=== PATIENT | male | born 1955 | race Caucasian/White ===

== ENCOUNTER 2024-11-04 05:55 | Day surgery (SDC) | payer MEDICARE, SELFPAY ==
[2024-10-22 10:39] VITALS: BMI 30.5
[2024-10-22 11:16] LABS: Hematocrit 42.5 % (39.0-52.0); Hemoglobin 14.1 g/dL (13.0-18.0); Mean Corp Hgb Conc. 33.2 g/dL (33.0-37.0); Mean Corpuscular Volume 89.9 fL (80.0-94.0); Nucleated Red Blood Cells % 0 % (-); Platelet Count 237 10^3/uL (130-400); Red Cell Dist. Width 12.7 % (11.5-14.5)
[2024-10-22 11:41] LABS: ALT (SGPT) 19 U/L (0-50); AST (SGOT) 21 U/L (17-59); Albumin 4.3 g/dl (3.5-5.0); Alkaline Phosphatase 37 U/L (38-126); Blood Urea Nitrogen 19 mg/dl (9-20); Calcium 9.5 mg/dl (8.4-10.2); Carbon Dioxide 25 mmol/L (22-30); Chloride 108 mmol/L (98-107); Estimated Creatinine Clearance 121 ml/min; Glucose 141 mg/dl (70-99); Potassium 4.4 mmol/L (3.5-5.1); Sodium 139 mmol/L (135-145); Total Protein 6.6 g/dl (6.3-8.2); eGFR > 60.00
[2024-11-04] VITALS (15 sets, daily range): BP systolic 108–135; BP diastolic 66–88; BMI 31.4
[2024-11-04 06:57] LABS: Glucose - Point of Care 121 mg/dl (70-99)
[2024-11-04 08:48] LABS: ACT-LR - POC 297 Seconds (116-155)
[2024-11-04 09:02] LABS: ACT-LR - POC 277 Seconds (116-155)
[2024-11-04 09:18] LABS: ACT-LR - POC 390 Seconds (116-155)
[2024-11-04 10:12] LABS: Glucose - Point of Care 125 mg/dl (70-99)
--- NOTE | 2024-11-04 10:18 | ITS.CL.ABL ---
[employer] [facility] [employer] - Ablation
Ablation
Procedure Report:
AFIB ablation:
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
Date of the Procedure:
11/04/2024
Indications:
Paroxysmal atrial fibrillation
Pre-Operative Diagnosis:
Paroxysmal atrial fibrillation
Post-Operative Diagnosis:
Paroxysmal atrial fibrillation
Procedure Performed:
Atrial fibrillation ablation with Pulsed-Field approach for pulmonary vein isolation
Performing Physician:
Blanca Larose MD
Assistants:
EP staff
Anesthesia:
See anesthesia records
Detailed Description of the Procedure:
Written informed consent was obtained from the patient after a full explanation of the risks and benefits of the procedure including the risks of sedation and anesthesia.
The patient was brought to the electrophysiology laboratory in stable condition in fasting state. Continuous electrocardiographic and hemodynamic monitoring was initiated.
The initial rhythm was sinus.
The procedure site was meticulously prepared with surgical scrub and allowed to dry with no pooling. Sterile draping was applied to cover the procedure site. The image intensifier was draped with sterile bag and positioned over the patient. After
infusion of local anesthetic, vascular access was obtained under ultrasound guidance and sheaths were placed over guide wire as detailed below.
Sheath and Catheter Placement:
The following catheters / sheaths were placed
Sheaths:
��������� 17Fr steerable sheath ([employer]adrive�, xAd) in right femoral
��������� 9Fr in right femoral vein
Catheters:
��������� LUIZA HD Grid mapping catheter � at locations of RA, LA
��������� Farawave� PFA catheter
��������� ICE catheter �ViewFlex at locations of RA, SVC, and RV.
Intracardiac ECHO:
An 8-Guinean AcuNav intracardiac ECHO (ICE) probe was advanced through the 9-Guinean sheath in the right femoral vein into the right atrium under fluoroscopic and ICE ultrasound image guidance and a baseline ECHO study was performed. The left atrial
size was normal. There was moderate tricuspid regurgitation. The aortic valve was grossly normal. There was normal left ventricular systolic functions. There is trace pericardial effusion. All the four veins were identified and has flow identified.
There was good flow noted in the JUAN MIGUEL.
During the procedure, ICE was used for monitoring of complications, guidance of trans-septal puncture, monitor the catheter position and tracking ablation lesions. No change in the pericardial space noted throughout the procedure.
Trans-septal Puncture:
Heparin was initiated and infused to maintain appropriate ACT. A pigtail guidewire was advanced through the 8-Guinean sheath in the right femoral vein into the superior vena cava under fluoroscopic and ICE guidance. The 9-Guinean sheath was exchanged
for a Faradrive sheath which was advanced into the superior vena cava. A transseptal RF pigtail via Faradrive connect system was utilized to perform the trans-septal puncture. The apparatus was withdrawn until it was in contact with the fossa
ovalis. The position was adjusted based on fluoroscopy and ultrasound images from ICE. Under fluoroscopic, hemodynamic and ICE ultrasound guidance, left atrium was cannulated by applying RF energy. Once atrial septum was cannulated, the pigtail wire
was advanced through the needle into the left atrium. The guide wire was advanced into the left superior pulmonary vein. Both the sheath and the dilator was advanced into the left atrium. The dilator with the needle was withdrawn. Blood was
aspirated from the Faradrive sheath and arterial blood confirmed. The sheath was flushed. Saline injection noted into the left atrium on ICE. The mapping catheter was advanced in the sheath into the left pulmonary vein. Left atrial pressure was
measured.
3D Electroanatomic Mapping:
Using the HD Grid catheter advanced through sheath into the left atrium, an electroanatomic map (EAM) of the left atrium was created using [employer] LUIZA mapping system. The map was used for localization of catheter position and tacking of ablation
lesions.
The EAM of the left atrium showed 4 pulmonary veins with all 4 veins electrically connected to the body the LA. It showed normal voltage on the posterior and anterior wall of the LA. The LA was mildly dilated in size.
Following the EAM, preparation were made for ablation.
Ablation:
Ablation # 1: Pulmonary vein Isolation:
Glycopyrrolate 0.2 mg was given prior to the placement of ablation.
Glycopyrrolate was not given due to the presence of dual chamber pacemaker.
Using [employer] pulsed wave ablation system, pulmonary vein isolation was achieved. First the ablation catheter was placed in the LSPV and ostial ablation lesions were performed in a counter clock calderon approach all around the PV ostium
circumferentially using the Farapulse catheter in �[place]� formation. Then the catheter was placed on the antral location (in Disc/flower formation) and multiple ablation lesions were placed circumferentially on the antrum of the vein.
In the similar fashion, the LIPV were isolated.
Then the catheter was moved to right sided veins. The ostial and antral ablations were placed as noted above.
EPS and Confirmation of the PVI and bidirectional block:
Following achievement of entrance block at the pulmonary veins, pacing from the HD catheter in each of the four veins at 10 milliamps for 2 milliseconds showed entrance and exit block. All PVI were rechecked at the end of the case and remained
isolated. Entrance and exit block were demonstrated in all veins.
Post ablation Electroanatomic mapping:
Once ablation was completed, the EAM of the LA was done again in sinus rhythm with excellent demarcation of LA myocardium and isolated antral tissue. There was no significant scarring noted in the LA.
The JUAN MIGUEL had healthy signals and was not isolated.
Procedure End
ICE study was done again that showed no epicardial accumulation. No complications noted.
Following the completion of the EP study, catheters were removed. Protamine 40 mg was given at the end of the procedure and ACT was checked repeatedly. The sheaths were removed and hemostasis achieved with �Figure of 8� and manual compression after
acceptable ACT is achieved.
Left atrial Pressure:
Pre-ablation: Mean LA pressure was 14mmHg
Post-ablation: Mean LA pressure was 14mmHg
Post-ablation: Mean RA pressure was 10mmHg
Estimated Blood loss:
<10 cc
Specimens Removed:
None.
Implants / Devices:
None
Urine output:
None
Packs / Drains/ Tubes:
None
Instrument / Sponge Count Correct:
Yes
Complications of the Procedure:
None
Condition of Patient at Time of Transfer:
Hemodynamically stable with no neurological or vascular compromise.
Summary:
Successful atrial fibrillation ablation with Pulsed Field approach for pulmonary vein isolation.
Figures from the Procedure:
Figure 1: The electroanatomic mapping (EAM) of the left atrium with bipolar voltage (purple indicates normal electrical activity with salvador as no myocardial muscle electric activity indicating a line of block or scar.
--- NOTE | 2024-11-04 13:59 | W.PN.UPDATE ---
Update Note
Progress Note Update
69 yo WM s/p PVI (Same day). He denies cp, sob, sally diet, voiding, EKG SR, b/l groins c/d/i no HT, soft. He will resume Eliquis tonight and continue metoprolol. Activity restrictions reviewed. He will f/u [facility] in 2 weeks. He is for d/c home after 230p
if groins stable.
== END 2024-11-04 14:24 | disposition home or self-care (01) ==
LOC: CATH 05:55
PROVIDERS: ATTENDING PHYSICIAN Internal Medicine Cardiovascular Disease; FAMILY PHYSICIAN Internal Medicine; OTHER PHYSICIAN Internal Medicine Cardiovascular Disease
DX: I48.0 Paroxysmal atrial fibrillation (principal); E11.9 Type 2 diabetes mellitus without complications; G47.33 Obstructive sleep apnea (adult) (pediatric); Z79.01 Long term (current) use of anticoagulants; Z79.899 Other long term (current) drug therapy
CPT/HCPCS: C1732; C1730; C1892; 36415; 80053; 82962; 85025; 85347; 86850; 86900; 86901; 93005; 93656; C1733

== ENCOUNTER 2025-02-24 22:09 | Inpatient (IN) | payer MEDICARE, SELFPAY ==
[2025-02-24] VITALS (8 sets, daily range): BP systolic 109–139; BP diastolic 70–99; BMI 32.4
--- NOTE | 2025-02-24 18:28 | ED.GENMED ---
History of Present Illness
General
Chief Complaint: Heart Rate Problem
Time Seen by Provider: 02/24/25 18:21
History of Present Illness
History of Present Illness:
Patient presents to the emergency department palpitations and tachycardia. He has a history of atrial fibrillation status post ablation in October. He is still maintained on Eliquis. Notes that since then he has had episodes of intermittent
tachycardia. States this episode has been ongoing since yesterday. He feels some chest tightness and that his heart is racing. Denies lower extremity swelling. Notes that over the past day or 2 he has been sick with an upper respiratory
infection.
Past History
Past History
ED Past Medical History: Hypercholesterolemia and Other (Sleep apnea, prediabetes, subarachnoid hemorrhage 2003); Negative HTN or NIDDM
Social History
Tobacco: Non-smoker
Phy Exam
Physical Exam
Physical Exam:
GENERAL APPEARANCE: NAD, well developed/ well nourished
EYES lids/conjunctiva normal
EARS/NOSE/THROAT Mucous membranes moist, uvula midline without oral pharyngeal erythema, exudate or swelling
HEAD/NECK normocephalic atraumatic, neck is supple.
RESPIRATORY respiratory effort normal, speaks in full sentences, no accessory muscle use. Lungs clear to auscultation without rhonchi, wheezes, rales
CARDIAC tachycardia, regular
ABDOMINAL Soft, ND/NT.
MUSCLES/EXTREMITIES No abnormal range of motion, no swelling.
SKIN Warm, pink and dry. No rashes
NEUROLOGICAL Speech is clear and appropriate. Normal level of consciousness. 5/5 strength in all extremities.
PSYCH Normal mood and affect. Judgement/competence is appropriate
Course
Orders/Labs/Results
Orders:
Orders
02/24/25 18:03
EKG [Electrocardiogram (*1)] Urgent
Reason for Study: Tachycardia
EKG- Treatment ONCE
02/24/25 18:25
0.9% Sodium Chloride 1000 ml [Nss] 1,000 ml IV BOLUS
Diltiazem 125 mg/125 ml Nss [Cardizem] 125 mg in 125 ml IV NOW
Initial dose in mg/hr, then titrate:: 5
Titrate to keep:: Heart rate 80-100 bpm
Titrate by mg/hr:: 5 mg/hr
Frequency of titrations (minutes):: 15
Maximum dose in mg/hr:: 15
Diltiazem HCl [Cardizem] 15 mg IV NOW STA
02/24/25 18:28
CR Chest - 2 Views Urgent
Comment:
Reason For Exam: cp
02/24/25 18:29
Complete Blood Count/With Diff Urgent
PT/INR [Prothrombin Time] Urgent
Is patient on Coumadin/Warfarin?: No
Comment: [email or web address]
PTT Urgent
02/24/25 18:44
COVID-19 Antigen Urgent
Source: Nasal Swab
Influenza A+B Rapid Molecular Urgent
RODOLFO Source: Nasal Swab
Specimen Description:
02/24/25 18:53
EKG [Electrocardiogram (*1)] Urgent
Reason for Study: Tachycardia
EKG- Treatment ONCE
02/24/25 19:30
Comprehensive Metabolic Panel Urgent
Troponin I Urgent
02/24/25 21:29
Admit/Transfer Patient As Directed
Co-Sign Provider:
Level of Care: Inpatient admission
Assign to:: IVU
Physician / Group: Fred
Diagnosis: Rapid afib, flutter. Influenza A infection
Reason for Hospitalization: Rapid afib, flutter.
Expected length of stay greater than two midnights?: Yes
ELOS- Estimated Length of Stay in days: 2
I certify the patient meets the requirements for IP care: Yes
PRN Pain Medication Management As Directed
May give lesser potent ordered pain med per pt: Yes
preference::
Protocol:: Medication orders for pain may be administered in a
manner that supports deferring to patient preference
when the pt is:
- Requesting an ordered lesser potent pain medication.
Least to most potent pain medications are defined
as: acetaminophen < NSAID < tramadol < opioids
(morphine, oxycodone, hydromorphone).
- Requesting a lesser dose of the same medication IF
ORDERED.
- Requesting a less intrusive route of administration
if both routes are prescribed by the provider (PO <
IV).
02/24/25 21:30
Code Status As Directed
Resuscitation Status: Full Code
02/24/25 21:36
Oseltamivir Phosphate [Tamiflu] 75 mg PO NOW STA
02/24/25 21:37
Metoprolol Xl [Toprol Xl] 50 mg PO NOW STA
Abnormal Lab Results
02/24/25 02/24/25
18:29 19:30
Absolute Monos (auto) 0.7 H 10^3/uL
(0.1-0.6)
Lymphocytes % 17.4 L %
(20.5-51.1)
Monocytes % 10.0 H %
(1.7-9.3)
PT 16.1 H Sec
(11.4-14.6)
Sodium 130 L mmol/L
(135-145)
Carbon Dioxide 21 L mmol/L
(22-30)
BUN 24 H mg/dl
(9-20)
Glucose 119 H mg/dl
(70-99)
02/24/25 18:29
02/24/25 19:30
Vital Signs
Initial and Last Documented VS:
Initial Vital Signs
Temp Pulse Resp BP
98 F 155 16 139/99
02/24/25 18:08 02/24/25 18:08 02/24/25 18:08 02/24/25 18:08
Last Documented Vital Signs
Temp Pulse Resp BP Pulse Ox
98 F 115 16 115/76 93
02/24/25 18:08 02/24/25 22:13 02/24/25 21:30 02/24/25 22:13 02/24/25 21:30
*Pulse Oximetry
Oxygen Mode of Delivery: Room air
Patient hypoxic: no
*Critical Care Note
Total Time (30-74mins, 75-104mins- exclusive of procedures): Not Applicable
ED Attending Note
ED Attending Note
ED Attending Note:
presents with general weakness, URI symtpoms, chest tightness
found to be in atrial flutter 2:1 conduction, HR 150
BP stable
workup notable for hyponatremia and Influenza A
giving IVF, on diltiazem drip HR has improved to around 100
-
Portions of this chart may have been created with voice recognition software.� Occasional wrong word or��sound alike� substitutions may have occurred due to the inherent limitations of voice recognition software.
Discharge Plan
Departure
Patient Disposition: Admit
Date of Disposition: 02/24/25
Time of Disposition: 21:00
Presentation/result/management discussed w/ accepting MD/DO: Hospitalist
Discharge Problem:
Atrial flutter, Hyponatremia, Influenza A
Interventions
Interventions:
*Risk Screen - Suicide Last Done: 02/24/25 18:09
*General Assessment Last Done: 02/24/25 20:43
*Neglect/Abuse Screening Last Done: 02/24/25 18:09
*ED COVID-19 Vaccine History Last Done: 02/24/25 20:43
*ED Influenza Vaccine History Last Done: 02/24/25 20:43
ED- Cardiac Assessment Last Done: 02/24/25 19:30
ED- Pulmonary Assessment Last Done: 02/24/25 20:46
[2025-02-24 18:36] LABS: Hematocrit 46.7 % (39.0-52.0); Hemoglobin 15.9 g/dL (13.0-18.0); Mean Corp Hgb Conc. 34.0 g/dL (33.0-37.0); Mean Corpuscular Volume 86.3 fL (80.0-94.0); Nucleated Red Blood Cells % 0 % (-); Platelet Count 226 10^3/uL (130-400); Red Cell Dist. Width 12.6 % (11.5-14.5)
[2025-02-24] MEDS: CARDIZEM 125 IV (18:38)
[2025-02-24] MEDS: CARDIZEM 15 MG IV (18:38)
[2025-02-24] MEDS: NSS 1000 IV (18:39)
[2025-02-24 18:55] LABS: INR 1.32; PT 16.1 Sec (11.4-14.6)
[2025-02-24 18:56] LABS: APTT 33.6 Sec (23.4-35.0)
[2025-02-24 19:09] LABS: COVID-19 Antigen Negative (Negative)
[2025-02-24 19:54] LABS: ALT (SGPT) 28 U/L (0-50); AST (SGOT) 28 U/L (17-59); Albumin 4.0 g/dl (3.5-5.0); Alkaline Phosphatase 46 U/L (38-126); Blood Urea Nitrogen 24 mg/dl (9-20); Calcium 8.6 mg/dl (8.4-10.2); Carbon Dioxide 21 mmol/L (22-30); Chloride 103 mmol/L (98-107); Glucose 119 mg/dl (70-99); Potassium 4.1 mmol/L (3.5-5.1); Sodium 130 mmol/L (135-145); Total Protein 6.7 g/dl (6.3-8.2); eGFR > 60.00
[2025-02-24 20:01] LABS: Troponin I < 0.012 ng/ml
--- NOTE | 2025-02-24 21:03 | HPS.HSE ---
Family Physician
-
Family Physician: Rene Peter
Chief Complaint
-
Palpitation
History of Present Illness
This is a 70-year-old male with past medical history significant for atrial fibrillation on anticoagulation, status post recent ablation on 29 October, borderline diabetes not on insulin, hyperlipidemia, comes to the emergency department with
palpitations and tachycardia.
Patient reports that he had an ablation in October and has not had intermittent episodes of tachycardia that is not persistent. Patient reported that he has had an episode that has been ongoing since yesterday. He reports some chest tightness and
racing heart. He states he developed upper respiratory symptoms with his spouse about 4 days ago. He reports some mild sinus congestion and cough but noticed significant shortness of breath or dyspnea on exertion. He has no fevers or chills. He
denies any GI losses. He does report slightly decreased appetite. He has no lower extremity swelling. He reports mostly fatigue associated with the upper respiratory symptoms.
In the emergency department he was afebrile, blood pressure was 140/90 with a pulse rate in the 130s, oxygen saturation was 98% on room air. ECG shows atrial flutter with a 2-1 conduction at a rate of 150, repeat ECG after IV diltiazem was down to
80s still atrial flutter with 4-1 conduction. Troponin was negative. Influenza A was positive. Chest x-ray shows no acute cardiopulmonary process. CBC was completely unremarkable stop electrolytes notable for a sodium of 130 but otherwise
unremarkable with normal BUN and creatinine.
Medical History
Past Medical History
Past Medical History: Reports Arrhythmia (Atrial fibrillation, status post cardioversion, status post recent pulmonary vein isolation (ablation)), Cancer (Basal cell cancer status post total resection), Hypercholesterolemia and NIDDM
Past Surgical History: Reports Other
Social History
Tobacco: Non-smoker
Alcohol: None
Drug: None
Living: With Family
Family History
Family History: Not pertinent
Allergies / Home Medications
Allergies reflects when Allergies were last updated in [employer].
Home Medications with original date entered in [employer]
Allergy/Medication List:
Allergies
Allergy/AdvReac Type Severity Reaction Status Date / Time
No Known Allergies Allergy Verified 11/04/24 06:18
Home Medications
apixaban 5 mg tablet (Eliquis) 5 mg PO BID #60 tabs 04/17/22
metformin 1,000 mg tablet 1,000 mg PO BID 04/17/22
multivitamin 1 tab PO DAILY 04/17/22
rosuvastatin 40 mg tablet 40 mg PO DAILY 04/17/22
coQ10 (ubiquinol) 100 mg capsule 100 mg PO DAILY 11/04/24
glipizide 5 mg tablet 5 mg PO DAILY 11/04/24
metoprolol succinate 100 mg tablet,extended release 24 hr 100 mg PO DAILY 11/04/24
omega 1-ral-jii-fish oil 1,000 mg (120 mg-180 mg) capsule (Fish Oil) 1 cap PO DAILY 11/04/24
propranolol 20 mg tablet 20 mg PO QIDPRN PRN afib breakthrough 11/04/24
Review of Systems
-
Constitutional: Reports No Symptoms
EENT: Reports Runny Nose
Respiratory: Reports No Symptoms
Cardiac: Reports No Symptoms and Palpitations (persistent tachycardia)
Abdomen/GI: Reports No Symptoms
: Reports No Symptoms
Musculoskeletal: Reports No Symptoms
Skin: Reports No Symptoms
Neurological: Reports No Symptoms
Endocrine: Reports No Symptoms
Hematologic/Lymphatic: Reports No Symptoms
Psych: Reports No Symptoms
Physical Exam
Vital Signs
Vital Signs
Temp Pulse Resp BP
98 F 121 16 139/99
02/24/25 18:08 02/24/25 20:40 02/24/25 18:08 02/24/25 18:08
Physical Exam
General: Well Developed, Well Nourished and No Apparent Distress
HEENT: NormoCephalic, Moist mucous membranes and Atraumatic
Respiratory: Clear
Cardiac: S1/S2, Irregular Rhythm and Tachycardia; No Murmur, Rub or Peripheral Edema
GI: Soft, Non Tender, Non Distended and Normal Bowel Sounds; No Organomegaly
Rectal: Deferred by Provider
Musculoskeletal: No Clubbing, No Cyanosis and No Edema
Skin: No Rash
Neuro: AO x 3 and Nonfocal/grossly intact
Laboratory Results
-
02/24/25 18:29
02/24/25 19:30
Laboratory Results
PT 16.1 Sec (11.4-14.6) H 02/24/25 18:
INR 1.32 02/24/25 18:
APTT 33.6 Sec (23.4-35.0) 02/24/25 18:29
Total Bilirubin 0.9 mg/dl (0.2-1.3) 02/24/25 19:30
AST 28 U/L (17-59) 02/24/25 19:30
ALT 28 U/L (0-50) 02/24/25 19:30
Alkaline Phosphatase 46 U/L (38-126) 02/24/25 19:30
Troponin I < 0.012 ng/ml 02/24/25 19:30
Data Reviewed
-
Diagnostic Radiology: Image Personally Visualized and interpreted and Report Reviewed by me
Medical Tests (Nuc Med, Echo, EKG etc): Image Personally Visualized and interpreted
Lab Data: Labs Reviewed by me
Old Records: Reviewed
Impression/Plan
-
IMPRESSION:
70-year-old with past medical history significant for vwg-zjnmhkj-evozivymv diabetes, atrial fibrillation on anticoagulation, hyperlipidemia who presents to the emergency department with persistent tachycardia and sensation of palpitations without
dizziness or lightheadedness and remains hemodynamically stable found to be in atrial flutter with initial 2-1 conduction then a 4 1 conduction after diltiazem drip. Patient reports 4 days of upper respiratory symptoms and fatigue and is found to
be influenza A positive.
PLAN:
Rapid atrial fibrillation -history of atrial fibrillation status post recent ablation, preserved EF with on anticoagulation with Eliquis presents with persistent atrial flutter at a rate of 150s over the last 24 to 36 hours. He has mild chest
tightness but denies chest pain and currently denies any chest tightness. Troponin is negative. ECG shows atrial flutter 2-1 conduction at 150 then reduction to one-to-one conduction after diltiazem started and now atrial fibrillation in the
120s. Possibly induced in setting of influenza.
-Admit to IVU inpatient given active flu and uncontrolled rapid afib
-continue diltiazem gtt for now
- continue metoprolol succinate 100 am , 50 hs
- will give additional propranolol once this evening as per patient protocol
- echo in am
- treat flu
- unlikely will need cardioversion, he has been compliant with eliquis with InR 1.3 so can undergo cardioversion if needed without MARTITA
- cardiology consultation
Influenza A infection - Flu A +, multiple risk factors with age, diabetes and uncontrolled afib
- tamfilu 75 bid for now
- supportive measures
- iv fluids
Hyponatremia - Mild dehydration suspected
- will give NS overnight
DM II
- hold metformin
- continue glipizide
- continue jardiance
- sliding scale insulin
DVT PPX - on apixaban
Code status - Full code
[2025-02-24] MEDS: TOPROL XL 50 MG PO (22:13)
[2025-02-24] MEDS: TAMIFLU 75 MG PO (22:13)
[2025-02-25] VITALS (26 sets, daily range): BP systolic 94–118; BP diastolic 59–83; BMI 29.8; BMI 29.5
[2025-02-25 00:30] LABS: Glucose - Point of Care 214 mg/dl (70-99)
[2025-02-25] MEDS: NSS 1000 IV (00:47)
--- NOTE | 2025-02-25 01:22 | PTCARENOTE ---
Pt. rec'd into room 2241 from ED AAOx3, VSS, A-flutter rate 90's on the monitor, Cardizem gtt running at 15 mg/hr. No complaints of chest pain discomfort, states he feels much better since HR came down with meds. B/L expiratory wheeze present on
auscultation, RA pulse ox 96%, denies SOB. Ambulates with steady gait, assist x 1 (help with IV pole only). Admission completed and plan of care discussed with pt., understanding verbalized. Isolation precautions maintained for positive flu A.
Pt. resting quietly.
[2025-02-25] MEDS: CARDIZEM 125 IV (05:04)
[2025-02-25 05:12] LABS: Hematocrit 42.2 % (39.0-52.0); Hemoglobin 14.4 g/dL (13.0-18.0); Mean Corp Hgb Conc. 34.1 g/dL (33.0-37.0); Mean Corpuscular Volume 89.0 fL (80.0-94.0); Platelet Count 189 10^3/uL (130-400); Red Cell Dist. Width 12.8 % (11.5-14.5)
[2025-02-25 05:38] LABS: Blood Urea Nitrogen 24 mg/dl (9-20); Calcium 8.3 mg/dl (8.4-10.2); Carbon Dioxide 23 mmol/L (22-30); Chloride 102 mmol/L (98-107); Estimated Creatinine Clearance 93 ml/min; Glucose 113 mg/dl (70-99); Magnesium 2.1 mg/dl (1.6-2.3); Potassium 4.1 mmol/L (3.5-5.1); Sodium 133 mmol/L (135-145); eGFR > 60.00
--- NOTE | 2025-02-25 08:07 | W.PN.HOSP.TC ---
Today's Communication/Plan
-
See plan
Assessment / Plan
Assessment / Plan
Physical Exam
General: Well Developed, Well Nourished and No Apparent Distress
HEENT: Normocephalic, Moist mucous membranes and Atraumatic
Respiratory: Clear
Cardiac: S1/S2, Irregular Rhythm
GI: Soft, Non Tender, Non Distended and Normal Bowel Sounds
Musculoskeletal: No Cyanosis and No Edema
Skin: Warm. Dry.
Neuro: AAO x 3 and Nonfocal/grossly intact
Assessment/Plan
Rapid Atrial Flutter
- Rate control (not rhythm control due to active Influenza infection): transitioned from Diltiazem Drip to PO Diltiazem, continue metoprolol succinate 100 am , 50 hs
- echo in am
- treat flu
- Continue Eliquis
- cardiology consultation
- Continue to monitor in IVU
- Rhythm check in 10 to 14 days -- if still in the rhythm, would offer cardioversion at that time; could also consider ablation
Influenza A infection - Flu A +, multiple risk factors with age, diabetes and uncontrolled afib
- tamfilu 75 bid for now
- supportive measures
- iv fluids
Hyponatremia - Suspected Hypovolemic
- Received IV fluids and afterwards improved
DM II
- hold metformin
- He does not take Glipizide at home
- continue jardiance
- sliding scale insulin
DVT PPX - on apixaban
Code status - Full code
Anticipated Discharge: Within 24 hours
Subjective/Interval History
-
Date of Service: February 25, 2025
Patient was seen and examined. He reported feeling better, was sitting in chair comfortably, doing okay.
Objective Data
-
Labs:
Laboratory Results
02/25/25
04:58
WBC 5.6
Hgb 14.4
Hct 42.2
Plt Count 189
Sodium 133 L
Potassium 4.1
Chloride 102
Carbon Dioxide 23
BUN 24 H
Creatinine 0.8
Glucose 113 H
Calcium 8.3 L
Vital Signs:
Vital Signs
Temp Pulse Resp BP Pulse Ox
98.5 F 86 20 117/67 96
02/25/25 06:39 02/25/25 05:00 02/25/25 06:39 02/25/25 05:00 02/25/25 06:39
I&O
02/24/25 02/25/25 02/26/25
06:59 06:59 06:59
Intake Total 980 / 980
Balance 980 / 980
[2025-02-25 08:16] LABS: Glucose - Point of Care 99 mg/dl (70-99)
[2025-02-25] MEDS: ELIQUIS 5 MG PO ×2 (08:18→20:10)
[2025-02-25] MEDS: TOPROL XL 100 MG PO (08:18)
[2025-02-25] MEDS: CRESTOR 40 MG PO (08:18)
[2025-02-25] MEDS: TAMIFLU 75 MG PO ×2 (08:55→20:11)
--- NOTE | 2025-02-25 08:58 | CM ---
Reviewed chart. Met with Mr. Irvin to review discharge plans. He states he is feeling better. He states prior to admission he resides with his spouse in a two story home with one step to enter. He state he has a full flight of steps to full
bathroom. He states he has a powder room on the first floor. He states he sleeps on the first floor. He states prior to admission he was independent with ambulation and adls. He states he has a CPAP Machine at home and no other DME. He states he
has a prescription plan and uses [facility]. Medical work-up in progress. The discharge plan is to return home with his spouse when medically stable.
--- NOTE | 2025-02-25 10:21 | CON.CAR ---
Addendum entered and electronically signed by Nathalie Duvall MD 02/25/25 12:50:
I saw and evaluated the patient, and I provided the substantive portion of the medical decision making.
I reviewed and agree with the note by BOBY Chapman and it accurately reflects our care.
I personally performed the medical decision making of the this encounter and my assessment and plan is below:
70-year-old gentleman with a past medical history of PAF status post PVI 10/2021 on Eliquis, diabetes, hypertension and obesity who presented for evaluation of palpitation and tachycardia into the 150s for the several days. He was noted to be
positive for flu. He is feeling better since rate is now under control.
On exam, he has an irregularly irregular rate and rhythm with a normal S1-S2 no murmur rubs gallops were appreciated lungs were clear to auscultation bilaterally abdomen was soft, extremities are warm over Fuzeon clubbing cyanosis or edema.
EKG on arrival showed atrial flutter with 2-1 conduction at 153 bpm today this is atrial flutter with rate control at 85 bpm.
Assessment:
Atrial flutter unspecified duration
PAF status post PVI
Influenza A
Diabetes
Hypertension
Plan:
Will not attempt rhythm control given active flu infection. Instead, we are achieving rate control with the addition of diltiazem drip. Will transition this to p.o. Will continue some beta-brigette. Would recommend a rhythm check in 10 to 14
days. If still in the rhythm would offer cardioversion at that time. Could also consider ablation continue Eliquis without interruption.
He asked about going to a haircut tomorrow, I recommended he isolate for the next 7 days given the flu.
Continue Jardiance and metformin.
Anticipate discharge tomorrow and rate control atrial flutter.
Original Note:
Consultation
Consultation Request
Date/Time Consultation Requested: 02/25/25 6:15a
Date/Time Consultation Performed: 02/25/25 9:30a
Requesting Provider: Dr. Ibarra
Performing Provider: BOBY Chapman for Dr. Duvall
Reason for Consultation: Aflutter
Medical History
-
Chief Complaint: palpitations
History of Present Illness:
Mr. Irvin is a 70 yo male with paroxysmal Afib s/p PVI 10/2024, on Eliquis, DM, HTN, and obesity, who presents to the ER with c/o palpitations with elevated heart rates of 150s for the last couple days. He states yesterday his heart rate was 150 all
day. He is s/p PVI 10/2024 and has had some palpitations on Toprol 100mg daily so he notified cardiology and Dr. Edmonds added Toprol 50mg at bedtime in addition to 100mg in am. He feels palps were a little better since then, but yesterday not. He
is flu positive and admitted to the hospitalist service. EKG with new Aflutter. On Diltiazem gtt his rates have improved and he denies any cardiac symptoms. He reports compliance with Eliquis, no abnormal bleeding.
Past Medical History
Past Medical History: Other (as above)
Past Surgical History: Cardiac (PVI 10/2024)
Social History
Tobacco: Non-Smoker
Personal:
Living: With Family
Family History
Family History: Reviewed & Not Pertinent
Allergies / Home Medications
Allergy/AdvReac Type Severity Reaction Status Date / Time
No Known Allergies Allergy Verified 11/04/24 06:18
�Medication �Instructions �Recorded �Confirmed �Type
metformin 1,000 mg tablet 1,000 mg PO BID Diabetes 04/17/22 02/24/25 History
multivitamin 1 tab PO DAILY Supplement 04/17/22 02/24/25 History
rosuvastatin 40 mg tablet 40 mg PO DAILY High Cholesterol 04/17/22 02/24/25 History
coQ10 (ubiquinol) 100 mg capsule 100 mg PO DAILY Supplement 11/04/24 02/24/25 History
metoprolol succinate 100 mg 100 mg PO DAILY Heart 11/04/24 02/24/25 History
tablet,extended release 24 hr Disease/Condition
omega 4-yic-yny-fish oil 1,000 mg 1 cap PO DAILY Supplement 11/04/24 02/24/25 History
(120 mg-180 mg) capsule (Fish Oil)
propranolol 20 mg tablet 20 mg PO QIDPRN PRN afib 11/04/24 02/24/25 History
breakthrough
empagliflozin 10 mg tablet 10 mg PO DAILY Diabetes 02/24/25 02/24/25 History
(Jardiance)
apixaban 5 mg tablet 5 mg PO BID Blood Clot 02/25/25 02/25/25 History
Prevention/Tx
Review of Systems
-
History Source: Patient
All other systems: Negative unless noted
Physical Exam
Vital Signs
Temp Pulse Resp BP Pulse Ox
98.5 F 81 20 100/63 96
02/25/25 06:39 02/25/25 09:30 02/25/25 06:39 02/25/25 08:27 02/25/25 06:39
Lab Results
02/25/25 04:58
02/25/25 04:58
Troponin I < 0.012 ng/ml 02/24/25 19:30
Yqc-X-Lxcwthrlyoa Pept 361 pg/ml 02/25/25 04:58
Physical Exam
General: Well Developed and No Apparent Distress
HEENT: Normocephalic and Anicteric
Respiratory: Clear and Non Labored Respirations
Cardiac: S1/S2 and Irregular Rhythm
Breast: Deferred by me
GI: Soft, Non Tender, Non Distended and Normal Bowel Sounds
Rectal: Deferred by Provider
Genito-urinary: Clear Urine
Musculoskeletal: No Clubbing, No Cyanosis and No Edema
Skin: Warm and Dry
Neuro: AO x 3
Hematologic/Lymphatic: No Lymphadenopathy
Psych: Calm
Impression / Plan
-
Aflutter - new with rapid rates.
- rates improved with IV Diltiazem.
- switch IV Dilt to PO, 60mg QID while inpatient.
- monitor on tele.
- continue Toprol 100mg daily.
- OAC with Eliquis 5mg BID, [id number] VASc score 3.
- plan for outpatient follow up in 2-3 weeks and can schedule cardioversion at that time, once he recovers from the flu.
Afib - paroxysmal.
- s/p PVI 10/2024.
- continue Toprol, Eliquis and Diltiazem.
HLD - stable on meds.
DM - per hospitalist.
Influenza A - acute.
- per hospitalists.
Data Reviewed
-
EKG: Tracing Personally Visualized and interpreted (Aflutter 87 bpm)
Radiology: Report Reviewed by me (CXR NAD)
Labs: Labs Reviewed by me
Old Records: Reviewed
[2025-02-25 10:43] LABS: Glycohemoglobin (HgbA1c) 6.7 % (4.0-5.9)
[2025-02-25 11:43] LABS: Glucose - Point of Care 110 mg/dl (70-99)
[2025-02-25] MEDS: CARDIZEM 60 MG PO ×2 (11:58→17:38)
[2025-02-25 16:51] LABS: Glucose - Point of Care 96 mg/dl (70-99)
[2025-02-25] MEDS: FARXIGA 10 MG PO (17:38)
[2025-02-25 21:30] LABS: Glucose - Point of Care 137 mg/dl (70-99)
[2025-02-25] MEDS: CARDIZEM PO (21:46)
[2025-02-25] MEDS: TOPROL XL 50 MG PO (21:48)
[2025-02-26] MEDS: CARDIZEM 60 MG PO ×2 (00:13→08:51)
--- NOTE | 2025-02-26 00:50 | PTCARENOTE ---
Pt. remains in A-flutter so far this shift, rate mostly 70's-low 100's with occasional ~2 second pauses. States he feels much better overall, flu symptoms improving. Currently watching TV.
[2025-02-26 03:47] VITALS: BP 105/64
[2025-02-26 04:01] VITALS: BMI 29.4
[2025-02-26 04:23] LABS: Blood Urea Nitrogen 27 mg/dl (9-20); Calcium 8.3 mg/dl (8.4-10.2); Carbon Dioxide 24 mmol/L (22-30); Chloride 105 mmol/L (98-107); Estimated Creatinine Clearance 124 ml/min; Glucose 111 mg/dl (70-99); Potassium 3.9 mmol/L (3.5-5.1); Sodium 134 mmol/L (135-145); eGFR > 60.00
[2025-02-26 07:12] VITALS: BP 101/78
[2025-02-26 07:16] LABS: Glucose - Point of Care 114 mg/dl (70-99)
--- NOTE | 2025-02-26 07:43 | W.PN.HOSP.TC ---
Today's Communication/Plan
-
Discharge today
Assessment / Plan
Assessment / Plan
Physical Exam
General: Well Developed, Well Nourished and No Apparent Distress
HEENT: Normocephalic, Moist mucous membranes
Respiratory: Clear to Auscultation Bilaterally
Cardiac: S1/S2, RRR
GI: Soft, Non Tender, Non Distended and Normal Bowel Sounds
Musculoskeletal: No Cyanosis and No Edema
Skin: Warm. Dry.
Neuro: AAO x 3 and Nonfocal/grossly intact
Assessment/Plan
Rapid Atrial Flutter - precipitated by Flu
- Rate control (not rhythm control due to active Influenza infection): rate control now with Toprol 100 mg QD and Diltiazem 240 mg QD
- echo noted
- treat flu
- Continue Eliquis 5 mg BID
- cardiology consultation
- Continue to monitor in IVU
- Plan for outpatient follow up in 2-3 weeks and can schedule cardioversion / ablation at that time, once he recovers from the flu
Paroxysmal Atrial Fibrillation - s/p PVI 10/2024
- As above, continue Toprol, Eliquis and Diltiazem
Influenza A infection - Flu A +, multiple risk factors with age, diabetes and uncontrolled afib
- tamfilu 75 bid for now -- more doses left, next dose on the evening of 02/26/25
Hyponatremia - Suspected Hypovolemic
- Received IV fluids and afterwards improved
DM II
- Continue metformin
- He does not take Glipizide at home
- continue jardiance
- sliding scale insulin
DVT PPX - on apixaban
Code status - Full code
On 02/26/25, I spoke to both patient and his , inside patient's room, and I answered all of their questions and concerns to satisfaction.
More than 30 minutes spent in discharge including
Final examination of the patient
Summarizing hospital stay
Instructions for continuing care to all relevant caregivers
Preparation of discharge records, prescriptions, and referral forms
Total time spent (in minutes): 37
Anticipated Discharge: Today
Subjective/Interval History
-
Date of Service: February 26, 2025
Patient was seen and examined. He reported feeling better today, and he feels ready to go home.
Objective Data
-
Labs:
Laboratory Results
02/26/25
03:57
Sodium 134 L
Potassium 3.9
Chloride 105
Carbon Dioxide 24
BUN 27 H
Creatinine 0.6 L
Glucose 111 H
Calcium 8.3 L
Vital Signs:
Vital Signs
Temp Pulse Resp BP Pulse Ox
97.7 F 71 16 105/64 99
02/26/25 07:12 02/26/25 04:30 02/26/25 07:12 02/26/25 03:47 02/26/25 07:12
I&O
02/25/25 02/26/25 02/27/25
06:59 06:59 06:59
Intake Total 980 / 980 480 / 480
Balance 980 / 980 480 / 480
[2025-02-26] MEDS: TOPROL XL 100 MG PO (08:50)
[2025-02-26] MEDS: CRESTOR 40 MG PO (08:50)
[2025-02-26] MEDS: ELIQUIS 5 MG PO (08:51)
[2025-02-26] MEDS: TAMIFLU 75 MG PO (08:51)
[2025-02-26] MEDS: FARXIGA 10 MG PO (08:51)
[2025-02-26] MEDS: FLUSH (NSS) 1 FLUSH IV (08:52)
--- NOTE | 2025-02-26 09:06 | W.PN.CD ---
Today's Communication / Plan
-
- Stable for discharge
Impression / Plan
-
Aflutter
- EKG showed typical CTI dependent flutter
- AFL was not seen until now
- Precipitated by Flu
- Rate control now with Toprol 100 mg QD and Diltiazem 240 mg QD.
- Ablation after recovery from flu.
- With plan for holidays, he will undergo AFL ablation after the holidays
- OAC with Eliquis 5mg BID, [id number] VASc score 3.
- plan for outpatient follow up in 2-3 weeks and can schedule cardioversion / ablation at that time, once he recovers from the flu.
Afib - paroxysmal.
- s/p PVI 10/2024.
- continue Toprol, Eliquis and Diltiazem.
HLD - stable on meds.
DM - per hospitalist.
Influenza A - acute.
- per hospitalists.
Physical Exam
Vital Signs/Labs
Vital Signs
Temp Pulse Resp BP Pulse Ox
97.7 F 118 16 101/78 99
02/26/25 07:12 02/26/25 08:51 02/26/25 07:12 02/26/25 08:51 02/26/25 07:12
02/25/25 02/26/25 02/27/25
06:59 06:59 06:59
Actual Weight 95.8 kg 95.7 kg
02/25/25 04:58
02/26/25 03:57
PT 16.1 Sec (11.4-14.6) H 02/24/25 18:29
INR 1.32 02/24/25 18:29
APTT 33.6 Sec (23.4-35.0) 02/24/25 18:29
Magnesium 2.1 mg/dl (1.6-2.3) 02/25/25 04:58
02/25/25
04:58
Tdz-Q-Nhjdmpfrqes Pept 361
LAB Results
02/24/25 02/24/25
18:29 19:30
Troponin I Cancelled < 0.012
Physical Exam
Constitutional: No acute distress and Comfortable
EENT: Anicteric and Moist mucous membranes
Cardiovascular: Rhythm & rate is regular, Pedal edema is absent and JVD pressure is normal
Respiratory: Lungs clear to auscul. and Wheeze Absent
GI: Soft, Non tender and Normal bowel sounds
Neuro/Psych: Alert, Oriented and AO x 3
Other: Cath Site
Data Reviewed
-
Date of Service: February 26, 2025
Medical Decision Making: Reviewed Test Results, Test Interpretation and Review of Case with other Provider
EKG: Tracing Personally Visualized and interpreted
Echo: Report Reviewed by me
Labs: Labs Reviewed by me
Old Records: Reviewed
[2025-02-26] MEDS: CARDIZEM CD 240 MG PO (10:23)
[2025-02-26 10:24] VITALS: BP 109/73
--- NOTE | 2025-02-26 10:26 | PTCARENOTE ---
Patient resting oob in the chair this morning, remains in AF but rates are better controlled and he is asymptomatic. Feeling better overall, mild coughing and a runny nose, maintaining droplet precautions. Patient seen by Dr. Larose and switched to
long acting diltiazem, planning for d/c today.
[2025-02-26 11:33] VITALS: BP 119/78
[2025-02-26 12:33] LABS: Glucose - Point of Care 101 mg/dl (70-99)
[2025-02-26 16:22] VITALS: BP 93/62
--- NOTE | 2025-02-26 17:40 | PTCARENOTE ---
Patient cleared for discharge by cardiology and the hospitalist. Reviewed discharge instructions with the patient and his and they state their understanding. Patient discharged home, aware of his new medications, lab work needed and follow up
plan.
== END 2025-02-26 17:05 | disposition home or self-care (01) | DRG 194 ==
LOC: IVU 22:09
PROVIDERS: Emergency Medicine; ADMITTING PHYSICIAN Internal Medicine; ATTENDING PHYSICIAN Hospitalist; EMERGENCY PHYSICIAN Emergency Medicine; FAMILY PHYSICIAN Internal Medicine; OTHER PHYSICIAN Internal Medicine Cardiovascular Disease
DX: J10.1 Influenza due to other identified influenza virus with other respiratory manifestations (principal); E87.1 Hypo-osmolality and hyponatremia; I48.92 Unspecified atrial flutter; I48.0 Paroxysmal atrial fibrillation; E11.9 Type 2 diabetes mellitus without complications; I10 Essential (primary) hypertension; E66.9 Obesity, unspecified; E78.5 Hyperlipidemia, unspecified; E86.0 Dehydration; Z11.52 Encounter for screening for COVID-19; Z79.899 Other long term (current) drug therapy; Z79.01 Long term (current) use of anticoagulants; Z68.29 Body mass index [BMI] 29.0-29.9, adult
CPT/HCPCS: 71046; 80048; 80053; 82962; 83036; 83735; 83880; 84484; 85025; 85027; 85610; 85730; 87502; 87811; 93005; 93306; 96361; 96365; 99285